=== PATIENT | female | born 1990 | race Two or more races ===

== ENCOUNTER 2022-03-16 16:16 | Emergency (ER) | payer MEDICAID ==
[~2022-03-16] VITALS: Ht 157.5 cm; Wt 63.5 kg
--- NOTE | 2022-03-16 16:49 | NUR ---
PT IS IN ROOM #1B. DR FULTON EVALUATED THE PT.
--- NOTE | 2022-03-16 17:37 | NUR ---
PT WAS D/C'd TO HOME. D/C INSTRUCTIONS GIVEN TO THE PT BY DR FULTON.
[2022-03-16 17:39] VITALS: BP 135/72
== END 2022-03-16 17:39 | disposition home or self-care (01) ==
LOC: ER 16:19
DX: M25.511 Pain in right shoulder (principal)
CPT/HCPCS: 73030; A4663